=== PATIENT | male | born 1945 | race African-American/Black ===

== ENCOUNTER 2019-04-25 10:52 | Day surgery (SDC) | payer OTHER, BC ==
[2019-04-22 09:45] VITALS: BMI 28.0
[2019-04-25 11:45] VITALS: BP 148/85; PULSE 81; TEMP 98.8
== END 2019-04-25 15:45 | disposition home or self-care (01) ==
LOC: JASU-SURG 10:52
PROVIDERS: ATTEND Urology
DX: Z53.8 Procedure and treatment not carried out for other reasons (principal)
CPT/HCPCS: 82962

== ENCOUNTER 2019-04-27 08:22 | Day surgery (SDC) | payer OTHER, BC ==
[2019-04-27 09:19] VITALS: BMI 28.0
[2019-04-27] MEDS ORDERED: LIDOCAINE HCL/PF 2% SDV 5ML VIAL ONE (12:43)
[2019-04-27] MEDS ORDERED: PROPOFOL 20 ML ONE ×2 (12:43)
[2019-04-27] MEDS ORDERED: ceFAZolin SODIUM 1 GM VIAL ONE (13:06)
[2019-04-27] MEDS ORDERED: ceFAZolin SODIUM 1 GM VIAL IVPB ONE (13:07)
[2019-04-27] MEDS ORDERED: oxyCODONE HCL 5 MG TABLET PO PRN (13:38)
[2019-04-27] MEDS ORDERED: ACETAMINOPHEN 325 MG TABLET (FP) PO PRN (13:38)
[2019-04-27] MEDS ORDERED: ONDANSETRON 4 MG/2 ML VIAL IVPUSH PRN (13:38)
--- NOTE | 2019-04-27 13:39 | OP ---
Operative Note - Note: Operative Date: 04/27/19 Pre-Operative Diagnosis: bph, ca. p, bladder neck contraction Operation: tuvp/tuvbn Findings: bph/bnc Post-Operative Diagnosis: Same as Pre-op Surgeon: Kaitlin Barclay Anesthesia: General Specimens Removed: urine Estimated Blood Loss (mls): 20 Drains & Tubes with Location: 22f 30cc steve Drains, Volume Out (mls): 0 Blood Volume Replaced (mls): 0 Fluid Volume Replaced (mls): 0 Operative Report Dictated: Yes
[2019-04-27] MEDS ORDERED: LACTATED RINGERS SOLUTION 1,000 ML IV SCH (13:45)
[2019-04-27 15:34] VITALS: TEMP 97.8
[2019-04-27 16:02] VITALS: BP 150/84; PULSE 75
--- NOTE | 2019-04-28 17:35 | PATH ---
Cytology Non-Gynecological Report Patient Name: GAVIN CORTEZ Med. Rec. #: [id number] /Age/Gender: 1945 (Age: 73) / M Account: [id number] Location: [facility] SUR[facility]ICAL Taken: 04/27/2019 Received: 04/27/2019 Reported: 04/28/2019 Physicians: Kaitlin Barclay M.D. Specimen(s) Received URINE Clinical History BPH Final Diagnosis URINE FOR CYTOLOGY: SATISFACTORY FOR EVALUATION. NEGATIVE FOR HIGH GRADE UROTHELIAL CARCINOMA. SCATTERED UROTHELIAL CELLS, SQUAMOUS EPITHELIAL CELLS PRESENT. RED BLOOD CELLS PRESENT. UROTHELIAL FRAGMENTS PRESENT. Comment: Urothelial fragments are suggestive of prior instrumentation, however differential diagnosis includes lithiasis, and low grade papillary neoplasm. Suggest clinical/radiologic correlation. Electronically Signed Marybeth Abarca M.D. Gross Description Approximately 40 cc of yellow fluid received fresh. One cytofunnel prepared and Pap stained.
--- NOTE | 2019-05-13 14:34 | OP ---
DATE OF OPERATION: 04/27/2019 PREOPERATIVE DIAGNOSIS: Benign prostatic hypertrophy with outflow obstruction. OPERATIVE PROCEDURE: Transurethral vaporization of the prostate, transurethral vaporization bladder neck. ANESTHESIA: General. DESCRIPTION OF PROCEDURE: Under above-stated anesthesia, patient is prepped and draped in the usual sterile manner. He is placed in the dorsal lithotomy position. Cystoscopy revealed a normal anterior urethra. Prostatic urethra revealed trilobar hypertrophy of the prostate. There was also bladder neck contraction. The bladder was entered. This revealed a grade 2 trabeculation. No lesions or calculi were seen. Ureteral orifices were within normal limits with efflux of clear urine. A bipolar resectoscope was inserted and resection of the prostate was commended in the usual fashion. Excess tissue was then vaporized with the plasma button. The bladder neck was also vaporized in a circumferential manner. Excess prostate tissue was evacuated with an EllSimmery evacuator. No active bleeding was noted. A 22-Monegasque, 30-cc Faustin was inserted. This was connected to a drainage bag. The patient tolerated the procedure well. He returned to the recovery room in good condition. Rossana [id number]
== END 2019-04-27 15:50 | disposition home or self-care (01) ==
LOC: JASU-SURG 08:22
PROVIDERS: ATTEND Urology
PROC: 0TTB4ZZ Resection of Bladder, Percutaneous Endoscopic Approach (ICD-10-PCS; 2019-04-27)
PROC: 0V507ZZ Destruction of Prostate, Via Natural or Artificial Opening (ICD-10-PCS; principal; 2019-04-27 12:00)
DX: N40.1 Benign prostatic hyperplasia with lower urinary tract symptoms (principal)
CPT/HCPCS: 82962; 87086; 94760

== ENCOUNTER 2020-02-17 05:10 | Day surgery (SDC) | payer OTHER, BC ==
[2020-02-15 15:14] VITALS: BMI 25.1
[~2020-02-17 05:10] MED LIST: ceFAZolin SODIUM 1 GM VIAL IVPB ONE
[2020-02-17] MEDS ORDERED: PROPOFOL 20 ML ONE ×2 (14:48)
[2020-02-17] MEDS ORDERED: ceFAZolin SODIUM 1 GM VIAL IVPB ONE (15:07)
--- NOTE | 2020-02-17 15:20 | CONS ---
DATE OF CONSULTATION: 02/17/2020 CHIEF COMPLAINT: Patient is a 74-year-old man with recurrent prostatism and acute urinary retention requiring a Faustin catheter. Multiple attempts at trial of voiding have failed. Patient is here today to undergo a cystoscopy and possible TUR of the bladder neck or prostate. PAST MEDICAL HISTORY: Patient does have history of diabetes, high blood pressure, and dyslipidemia. MEDICATIONS: He is on Crestor, metoprolol, and metformin. ALLERGIES: He denies any allergies. SOCIAL HISTORY: He denies ethanol use or tobacco. He does wake up 4 times at night, underwent radiation seed implantation for prostate cancer 12 years earlier. He denies any other surgical procedures. PHYSICAL EXAMINATION: Presently his abdomen is soft. There is no tenderness, no CVA masses or tenderness. No hepatosplenomegaly. Testes are normal in size and consistency. Phallus is normal. Meatus is adequate. Prostate is 2+, firm, and nontender. A PSA recently performed was 0.4. IMPRESSION AT PRESENT: Acute urinary retention due to bladder neck contraction and/or recurrent prostate tissue. PLAN: The plan is to do a cystoscopy, possible TUR or TUV of bladder neck and prostate. JUVE BRAND M.D. [id number]
--- NOTE | 2020-02-17 16:04 | OP ---
Operative Note - Note: Operative Date: 02/17/20 Pre-Operative Diagnosis: h/o ca. prostate, aur, h/o prostatism Operation: turp/tuvp/tuvbn Findings: rec. bph with obst. and bladder neck contraction Post-Operative Diagnosis: Same as Pre-op Surgeon: Kaitlin Barclay Anesthesia: General Specimens Removed: prostate chips and bladder neck scar tissue Drains & Tubes with Location: 24f-30cc steve Drains, Volume Out (mls): 0 Blood Volume Replaced (mls): 0 Fluid Volume Replaced (mls): 0 Operative Report Dictated: Yes
--- NOTE | 2020-02-17 16:26 | OP ---
DATE OF OPERATION: 02/17/2020 DATE OF DICTATION: 02/17/2020 CHIEF COMPLAINT: The patient is a 74-year-old male with acute urinary retention. PREOPERATIVE DIAGNOSIS: Acute urinary retention, history of carcinoma prostate status post radiation seed implantation 12 years earlier, recurrent benign prostatic hypertrophy, and bladder neck contraction. POSTOPERATIVE DIAGNOSIS: Acute urinary retention, history of carcinoma prostate status post radiation seed implantation 12 years earlier, recurrent benign prostatic hypertrophy, and bladder neck contraction. OPERATIVE PROCEDURE: Cystourethroscopy, transurethral resection of prostate, transurethral vaporization of bladder neck. ANESTHESIA: General. DESCRIPTION OF PROCEDURE: Under above stated anesthesia, patient was prepped and draped in the usual sterile manner. He was placed in the dorsal lithotomy position. Cystoscopy revealed a normal anterior urethra. Prostatic urethra revealed recurrent prostate tissue with lateral lobe kissing. The bladder neck was also contracted and appeared to be scared. Bipolar resectoscope was inserted. Resection of the prostate was commenced in the usual fashion. Prostate chips were evacuated with an Innoz evacuator. No active bleeding was noted. Vapor button also bipolar was inserted. The bladder neck was vaporized from the 6 o'clock to the 12 o'clock position on the right side, and from the 6 o'clock to the 12 o'clock position on the left side. Again, no active bleeding was noted. No free tissue was noted. The bladder was emptied. The scope was removed. The 24 Salvadorean, 30 mL Faustin was inserted. This was connected to a leg bag with some traction. The patient tolerated the procedure well. He returned to the recovery room in good condition. Rossana [id number]
[2020-02-17 19:01] VITALS: BP 148/82; PULSE 78; TEMP 96.9
--- NOTE | 2020-02-21 17:34 | PATH ---
Surgical Pathology Report Patient Name: GAVIN CORTEZ Med. Rec. #: [id number] /Age/Gender: 1945 (Age: 74) / M Account: [id number] Location: [facility] SURGICAL Taken: 02/17/2020 Received: 02/20/2020 Reported: 02/21/2020 Physicians: Kaitlin Barclay M.D. Specimen(s) Received BLADDER NECK AND PROSTATE CHIPS Clinical History Bladder neck obstruction Final Diagnosis BLADDER NECK AND PROSTATE CHIPS, TRANSURETHRAL RESECTION OF PROSTATE, TRANSURETHRAL VAPORIZATION OF BLADDER NECK: BENIGN PROSTATIC TISSUE WITH PATCHY MILD ACUTE AND CHRONIC INFLAMMATION, FOCAL CYSTIC CHANGES, AND STROMAL HYPERPLASIA. BLADDER MUCOSA WITH SEVERE ACUTE AND CHRONIC CYSTITIS AND REACTIVE CHANGES. Electronically Signed Marybeth Abarca M.D. Gross Description Received in formalin labeled "bladder neck and prostate," is a 4 g, 5.7 x 4.5 x 0.5 cm aggregate of nino, firm to rubbery portions of tissue, consistent with prostate chips. The formalin is filtered and the specimen is entirely submitted in 5 cassettes. /02/20/2020 [facility]02/20/2020
== END 2020-02-17 18:35 | disposition home or self-care (01) ==
LOC: JASU-SURG 05:10
PROVIDERS: ATTEND Urology
PROC: 0VT08ZZ Resection of Prostate, Via Natural or Artificial Opening Endoscopic (ICD-10-PCS; principal; 2020-02-17 13:00)
DX: N40.1 Benign prostatic hyperplasia with lower urinary tract symptoms (principal); R33.8 Other retention of urine; N32.0 Bladder-neck obstruction; Z85.46 Personal history of malignant neoplasm of prostate; Z92.3 Personal history of irradiation; I10 Essential (primary) hypertension; E11.9 Type 2 diabetes mellitus without complications; Z79.84 Long term (current) use of oral hypoglycemic drugs
CPT/HCPCS: 82962; 88305-TC; 94760

== ENCOUNTER 2020-03-15 19:00 | Inpatient (IN) | payer OTHER, BC ==
[2020-03-15 19:07] VITALS: BMI 25.9
--- NOTE | 2020-03-15 19:34 | PDOC ---
History of Present Illness - General Chief Complaint: Urinary Problem Stated Complaint: SENT BY PCP/STAT - History of Present Illness Initial Comments: The pt is a 74M w/ a history of prostate cancer s/p TURP, HTN, DM who presents for evaluation from Dr. Barclay's office for difficulty with urination and clots. The pt reports having a TURP recently. The pt denies any fevers/chills, MARTINS, vision changes, chest pain, trouble breathing, abdominal or back pain, diarrhea, vomiting, or blood in stool. Pt reports he was sent for admission for a procedure tomorrow. 03/15/20 19:43 Past History - Medical History Allergies/Adverse Reactions: Allergies Allergy/AdvReac Type Severity Reaction Status Date / Time No Known Allergies Allergy Verified 03/15/20 19:06 Home Medications: Ambulatory Orders Aspirin Coated [Ecotrin -] 81 mg PO DAILY 04/22/19 Metformin HCl [Glucophage] 1,000 mg PO BID 04/22/19 Metoprolol Succinate [Toprol Xl -] 200 mg PO DAILY 04/22/19 Rosuvastatin [Crestor -] 20 mg PO DAILY 04/22/19 Tamsulosin HCl [Flomax] 0.4 mg PO HS 03/15/20 COPD: No Diabetes: Yes HTN: Yes Hypercholesterolemia: Yes - Psycho-Social/Smoking History Smoking History: Never smoked Have you smoked in the past 12 months: No If you are a former smoker, when did you quit?: 2004 Information on smoking cessation initiated: No - Substance Abuse Hx (Audit-C & DAST Scrn) How often the patient has a drink containing alcohol: Never Score: In Men: 4 or > Positive; In Women: 3 or > Positive: 0 Screen Result (Pos requires Nsg. Audit-10AR): Negative In the last yr the pt used illegal drug/Rx for NonMed reason: No Score: Yes response is considered Positive: 0 Screen Result (Positive result requires Nsg. DAST-10): Negative Review of Systems - Review of Systems Able to Perform ROS?: Yes Comments:: GENERAL/CONSTITUTIONAL: No fever or chills. No weakness HEAD, EYES, EARS, NOSE AND THROAT: No change in vision. No change in hearing. No sore throat CARDIOVASCULAR: No chest pain or shortness of breath RESPIRATORY: Denies cough, hemoptysis GASTROINTESTINAL: No nausea, vomiting, diarrhea or constipation GENITOURINARY: per HPI MUSCULOSKELETAL: No joint or muscle swelling or pain. No neck or back pain SKIN: No rash NEUROLOGIC: No headache, vertigo, loss of consciousness, or change in str ength/sensation ENDOCRINE: No increased thirst. No abnormal weight change ALLERGIC/IMMUNOLOGIC: No hives or skin allergy 03/15/20 19:32 Is the patient limited Thai proficient: No *Physical Exam - Vital Signs Last Vital Signs Temp Pulse Resp BP Pulse Ox 98.2 F 92 H 18 108/84 98 03/15/20 19:03 03/15/20 19:03 03/15/20 19:03 03/15/20 19:03 03/15/20 19:03 - Physical Exam GENERAL: Awake, alert, and oriented to person/place/time, in no acute distress HEAD: No signs of trauma, normocephalic, atraumatic EYES: PERRLA, EOMI, sclera anicteric, conjunctiva clear ENT: Hearing grossly normal, nares patent, oropharynx clear without exudates. Moist mucosa LUNGS: No distress, speaks in full sentences, clear to auscultation bilaterally HEART: Regular rate and rhythm, normal S1 and S2, no murmurs appreciated, peripheral pulses normal and equal bilaterally ABDOMEN: Soft, nontender, normoactive bowel sounds. No guarding, no rebound EXTREMITIES: Normal inspection, Normal range of motion, no edema. No clubbing or cyanosis NEUROLOGICAL: Cranial nerves II through XII grossly intact. Normal speech, normal gait, no focal sensorimotor deficits SKIN: Warm, Dry 03/15/20 19:34 ED Treatment Course - LABORATORY CBC & Chemistry Diagram: 03/15/20 20:00 03/15/20 20:00 Medical Decision Making - Medical Decision Making The pt is a 74M w/ a history of prostate cancer s/p TURP, HTN, DM who presents for evaluation from Dr. Barclay's office for difficulty with urination and clots sent for admission for a procedure tomorrow. ED Course Labs sent ECG Pt does not have any physical complaints at this time 03/15/20 20:45 ECG w/ NSR; HR 89; QTc 413; no axis deviation; no ANNE No leukocytosis Anemia noted, no indication for transfusion at this time Lytes unremarkable Cr noted, near baseline LFTs unremarkable Pt reported urinating at time of arrival, a small amount Denies abdominal pressure/discomfort; no abdominal TTP NPO after midnight Dispo: Admit 03/15/20 21:46 Discharge - Discharge Information Problems reviewed: Yes Clinical Impression/Diagnosis: Difficulty urinating, History of prostate cancer Condition: Stable - Admission Yes - Follow up/Referral Referrals: Axel Barclay MD [Primary Care Provider] - - Patient Discharge Instructions - Post Discharge Activity
[2020-03-15 20:35] LABS: BASO % 0.3 % (0-2.0); EOS % 2.1 % (0-4.5); HEMATOCRIT 34.5 % (35.4-49); HEMOGLOBIN 11.4 GM/dL (11.7-16.9); LYMPH % 14.5 % (8-40); MCH 30.2 pg (25.7-33.7); MEAN CELL VOLUME 91.6 fl (80-96); MEAN PLT VOLUME 8.6 fl (7.5-11.1); MONO % 4.8 % (3.8-10.2); NEUT % 78.3 % (42.8-82.8); PLATELET COUNT 282 K/MM3 (134-434); RBC 3.77 M/mm3 (4.00-5.60); WHITE BLOOD COUNT 9.8 K/mm3 (4.0-10.0)
[2020-03-15 20:43] LABS: INR 1.04 (0.83-1.09); PROTHROMBIN TIME (PATIENT) 12.3 SEC (9.7-13.0)
[2020-03-15 20:45] LABS: ACTIVATED PTT 35.6 SECONDS (25.2-36.5)
--- NOTE | 2020-03-15 21:12 | PDOC ---
Attending Attestation - Resident Resident Name: RamonamollyArianaEnrique - ED Attending Attestation I have performed the following: I have examined & evaluated the patient, The case was reviewed & discussed with the resident, I agree w/resident's findings & plan, Exceptions are as noted - HPI HPI: 03/15/20 21:10 See resident HPI - Physicial Exam PE: 03/15/20 21:10 Agree with documented exam - Medical Decision Making 03/15/20 21:[address] Barclay for admission and possible cystoscopy tomorrow Pt has stricture preventing steve placement, is passing clots, currently w/o re tention No distress pre-op labs, ekg admit Discharge - Discharge Information Problems reviewed: Yes Clinical Impression/Diagnosis: Difficulty urinating, History of prostate cancer Condition: Stable - Follow up/Referral - Patient Discharge Instructions - Post Discharge Activity
[2020-03-15 21:17] LABS: BILIRUBIN,TOTAL 0.4 mg/dL (0.2-1); BLOOD UREA NITROGEN 27.1 mg/dL (7-18); CALCIUM 9.5 mg/dL (8.5-10.1); CREATININE 1.4 mg/dL (0.55-1.3); POTASSIUM 4.8 mmol/L (3.5-5.1); TOT PROT 7.1 g/dl (6.4-8.2)
[2020-03-16] MEDS ORDERED: MORPHINE SULFATE 2 MG/ML VIAL IVPUSH PRN (07:35)
[2020-03-16] MEDS ORDERED: CEFTRIAXONE 1 GM in DEXTROSE 5%-WATER - 50 ML IVPB ONE ×2 (08:00→17:10)
[2020-03-16 08:25] LABS: BASO % 0.2 % (0-2.0); EOS % 0.2 % (0-4.5); HEMATOCRIT 37.6 % (35.4-49); HEMOGLOBIN 12.2 GM/dL (11.7-16.9); LYMPH % 8.2 % (8-40); MCH 30.1 pg (25.7-33.7); MCHC 32.5 g/dl (32.0-35.9); MEAN CELL VOLUME 92.7 fl (80-96); MEAN PLT VOLUME 8.5 fl (7.5-11.1); MONO % 4.1 % (3.8-10.2); NEUT % 87.3 % (42.8-82.8); PLATELET COUNT 249 K/MM3 (134-434); RBC 4.05 M/mm3 (4.00-5.60); RDW 14.2 % (11.9-15.9); WHITE BLOOD COUNT 15.9 K/mm3 (4.0-10.0)
[2020-03-16 09:02] LABS: ALBUMIN 3.1 g/dl (3.4-5.0); BILIRUBIN,TOTAL 0.5 mg/dL (0.2-1); BLOOD UREA NITROGEN 29.4 mg/dL (7-18); CALCIUM 9.7 mg/dL (8.5-10.1); CREATININE 1.4 mg/dL (0.55-1.3); POTASSIUM 4.3 mmol/L (3.5-5.1); TOT PROT 7.3 g/dl (6.4-8.2)
[2020-03-16] MEDS ORDERED: CEFTRIAXONE 1 GM/50 ML BAG ONE (09:04)
--- NOTE | 2020-03-16 09:17 | EKG ---
Test Reason : Blood Pressure : / mmHG Vent. Rate : 089 BPM Atrial Rate : 089 BPM P-R Int : 192 ms QRS Dur : 080 ms QT Int : 340 ms P-R-T Axes : 060 059 035 degrees QTc Int : 413 ms NORMAL SINUS RHYTHM NONSPECIFIC T WAVE ABNORMALITY ABNORMAL ECG NO PREVIOUS ECGS AVAILABLE Confirmed by HECTOR JOHNSON MD ([id number]) on 03/16/2020 9:16:51 AM Referred By: Confirmed By:HECTOR JOHNSON MD
[2020-03-16] MEDS: SODIUM CHLORIDE 0.45% 1,000 ML IV SCH (09:30)
--- NOTE | 2020-03-16 13:44 | HP ---
Admitting History and Physical - Admission History of Present Illness: pt had turbt bladderr neck? procedure to open ? stricture and bladder neck ? 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) Endocrine: Yes: Diabetes Mellitus - Past Surgical History Additional Past Surgical History: tubrt - Smoking History Smoking history: Never smoked Have you smoked in the past 12 months: No If you are a former smoker, when did you quit?: 2005 - Alcohol/Substance Use Hx Alcohol Use: No History of Substance Use: reports: None - Social History Usual Living Arrangement: Yes: With Spouse History of Recent Travel: No Home Medications - Allergies Allergies/Adverse Reactions: Allergies Allergy/AdvReac Type Severity Reaction Status Date / Time No Known Allergies Allergy Verified 03/15/20 19:06 - Home Medications Home Medications: Ambulatory Orders Aspirin Coated [Ecotrin -] 81 mg PO DAILY 04/22/19 Metformin HCl [Glucophage] 1,000 mg PO BID 04/22/19 Metoprolol Succinate [Toprol Xl -] 200 mg PO DAILY 04/22/19 Rosuvastatin [Crestor -] 20 mg PO DAILY 04/22/19 Tamsulosin HCl [Flomax] 0.4 mg PO HS 03/15/20 Family Medical History Family History: Unremarkable Review of Systems - Review of Systems Constitutional: reports: No Symptoms, Malaise HENT: reports: No Symptoms Neck: reports: No Symptoms Cardiovascular: reports: No Symptoms Respiratory: reports: No Symptoms Gastrointestinal: reports: No Symptoms Genitourinary: reports: Frequency, Other (u/a retention) Breasts: reports: No Symptoms Reported Musculoskeletal: reports: No Symptoms Integumentary: reports: No Symptoms Neurological: reports: No Symptoms Endocrine: reports: No Symptoms Hematology/Lymphatic: reports: No Symptoms Psychiatric: reports: No Symptoms Physical Examination Vital Signs: Vital Signs Temperature 98.5 F 03/16/20 09:00 Pulse Rate 106 H 03/16/20 09:00 Respiratory Rate 18 03/16/20 09:00 Blood Pressure 192/90 H 03/16/20 09:00 O2 Sat by Pulse Oximetry (%) 94 L 03/16/20 09:00 Constitutional: Yes: Well Nourished Eyes: Yes: WNL HENT: Yes: WNL Neck: Yes: WNL Cardiovascular: Yes: WNL Respiratory: Yes: WNL Gastrointestinal: Yes: WNL ...Rectal Exam: Yes: Deferred Renal/: Yes: WNL, Urethral Discharge Musculoskeletal: Yes: WNL Extremities: Yes: WNL Edema: Yes Peripheral Pulses WNL: Yes Integumentary: Yes: WNL Neurological: Yes: WNL ...Motor Strength: WNL Psychiatric: Yes: WNL Labs: CBC, BMP 03/16/20 08:09 03/16/20 08:09 Assessment/Plan cysyto today feed pt postop ?d/c home with leg bag see me thursday 100 pm and gu later cont all meds at home
[2020-03-16] MEDS ORDERED: PROPOFOL 20 ML ONE (15:54)
[2020-03-16] MEDS ORDERED: LIDOCAINE HCL/PF 2% SDV 5ML VIAL ONE (15:54)
[2020-03-16] MEDS ORDERED: DEXAMETHASONE SOD PHOSPHATE 4 MG/1 ML VIAL ONE (15:54)
[2020-03-16] MEDS ORDERED: ceFAZolin SODIUM 1 GM VIAL IVPB ONE (16:32)
[2020-03-16] MEDS ORDERED: ceFAZolin SODIUM 1 GM VIAL ONE (16:32)
[2020-03-16] MEDS ORDERED: IOHEXOL 180 MG/1 ML ML IJ ONE ×2 (16:40)
--- NOTE | 2020-03-16 16:59 | OP ---
Operative Note - Note: Operative Date: 03/16/20 Pre-Operative Diagnosis: aur Operation: cysto, dilation and steve placement Findings: contracted bladder neck Post-Operative Diagnosis: Same as Pre-op Surgeon: Kaitlin Barclay Anesthesia: General Specimens Removed: urine Estimated Blood Loss (mls): 0 Instrument used (Debridements only): 0 Drains & Tubes with Location: 20f 10cc steve Drains, Volume Out (mls): 0 Blood Volume Replaced (mls): 0 Fluid Volume Replaced (mls): 0 Operative Report Dictated: Yes
[2020-03-16] MEDS ORDERED: ACETAMINOPHEN INJECTION 100 ML IVPB ONE (17:05)
[2020-03-16] MEDS ORDERED: ACETAMINOPHEN 1000 MG/100 ML VIAL (NON FORMULARY) IVPB PRN (17:08)
[2020-03-16] MEDS ORDERED: GENTAMICIN INJECTION 160 MG in SODIUM CHLORIDE 100 ML IVPB ONE (17:15)
[2020-03-16] MEDS ORDERED: GENTAMICIN SO4 80 MG/2 ML VIAL ONE (17:20)
[2020-03-16] MEDS ORDERED: cefTRIAXone SODIUM 1 GM VIAL ONE (17:20)
[2020-03-16] MEDS: ROSUVASTATIN CA 20 MG TABLET (FP) PO SCH (22:19)
[2020-03-17] MEDS: SODIUM CHLORIDE 0.45% 1,000 ML IV SCH (07:46)
[2020-03-17] MEDS ORDERED: PT OWN MED DRAWER 7, Y5N ONE ×2 (09:07→09:36)
[2020-03-17] MEDS: FINASTERIDE 5 MG TABLET (FP) PO SCH (09:34)
[2020-03-17] MEDS: amLODIPine BESYLATE 10 MG TABLET (FP) PO SCH (09:35)
[2020-03-17] MEDS: ASPIRIN COATED 81 MG TABLET.EC PO SCH (09:35)
[2020-03-17] MEDS ORDERED: GENTAMICIN 80 MG PREMIXED IVPB 80 MG/100 ML BAG IVPB SCH (10:00)
[2020-03-17 10:36] LABS: BASO % 0.1 % (0-2.0); EOS % 0.1 % (0-4.5); HEMATOCRIT 31.5 % (35.4-49); HEMOGLOBIN 10.5 GM/dL (11.7-16.9); LYMPH % 10.6 % (8-40); MCH 30.3 pg (25.7-33.7); MCHC 33.3 g/dl (32.0-35.9); MEAN CELL VOLUME 90.8 fl (80-96); MONO % 3.4 % (3.8-10.2); NEUT % 85.8 % (42.8-82.8); PLATELET COUNT 236 K/MM3 (134-434); RBC 3.47 M/mm3 (4.00-5.60); WHITE BLOOD COUNT 14.7 K/mm3 (4.0-10.0)
[2020-03-17 10:59] LABS: BLOOD UREA NITROGEN 23.1 mg/dL (7-18); CALCIUM 9.4 mg/dL (8.5-10.1); POTASSIUM 4.4 mmol/L (3.5-5.1)
--- NOTE | 2020-03-17 13:31 | PN ---
Progress Note (short form) - Note Progress Note: UROLOGY NOTE 74 Y/O Male patient S/P BNR on steve catheter doing well, no pain clear urine. O/E Soft lax abd no palpable bladder 20 F catheter drains clear urine WBC 14.7 HB 10.5 BUN 23.1 S.Creat 1.0 on Gentamycin inj Plan: keep Steve will follow
--- NOTE | 2020-03-17 14:12 | DS ---
Physical Examination Vital Signs: Vital Signs Temperature 98.7 F 03/17/20 10:00 Pulse Rate 87 03/17/20 10:00 Respiratory Rate 19 03/17/20 10:00 Blood Pressure 141/71 03/17/20 10:00 O2 Sat by Pulse Oximetry (%) 99 03/17/20 10:00 Constitutional: Yes: Well Nourished Eyes: Yes: WNL HENT: Yes: WNL Neck: Yes: WNL Cardiovascular: Yes: WNL Respiratory: Yes: WNL Gastrointestinal: Yes: WNL ...Rectal Exam: Yes: Deferred Renal/: Yes: Fautsin Present Breast(s): Yes: WNL, Skin Changes Extremities: Yes: WNL Edema: No Peripheral Pulses WNL: Yes Integumentary: Yes: WNL Neurological: Yes: WNL ...Motor Strength: WNL Psychiatric: Yes: WNL Labs: CBC, BMP 03/17/20 09:36 03/17/20 09:30 Discharge Summary Problems reviewed: Yes Reason For Visit: HEMATURIA,DIFFICULTY IN URINATION Current Active Problems Difficulty urinating (Acute) History of prostate cancer (Acute) Condition: Stable - Instructions Diet, Activity, Other Instructions: leg bag gu f/u appt with me 1200 noon thursday cont all as is at home cipro 250 bid x 7 days Referrals: Axel Barclay MD [Primary Care Provider] - Disposition: HOME - Home Medications Comprehensive Discharge Medication List: Ambulatory Orders Aspirin Coated [Ecotrin -] 81 mg PO DAILY 04/22/19 Metformin HCl [Glucophage] 1,000 mg PO BID 04/22/19 Metoprolol Succinate [Toprol Xl -] 200 mg PO DAILY 04/22/19 Rosuvastatin [Crestor -] 20 mg PO DAILY 04/22/19 Tamsulosin HCl [Flomax] 0.4 mg PO HS 03/15/20
--- NOTE | 2020-03-17 19:09 | CONS ---
PREOPERATIVE NOTE DATE OF CONSULTATION: DATE OF DICTATION: 03/17/2020 A 74-year-old male who was seen in the office yesterday with inability to void. Several attempts at passage of a Faustin were unsuccessful. Therefore, the patient was sent to the emergency room to have the procedure performed under anesthesia with a rigid cystoscope. Patient does have history of cancer of the prostate, for which he underwent radiation seed implantation 2 weeks prior. Patient underwent a TUR of a bladder neck contraction, had a Faustin catheter inserted at that time, but was removed on the fifth postoperative day. Patient came complaining of dribbling and suprapubic pain. A bladder scan revealed more than 600 mL of urine in the bladder. ALLERGIES: Patient denies any allergies. PHYSICAL EXAMINATION: General: A well-developed, adult male. Abdomen: Soft. His bladder is distended. Genitalia: Appear normal and atraumatic. Extremities: Full range of motion with no cyanosis, clubbing, or edema. IMPRESSION: Urinary retention with bladder neck contraction. PLAN: Cystoscopy and placement of Faustin catheter. Rossana [id number]
--- NOTE | 2020-03-17 21:46 | OP ---
DATE OF OPERATION: 03/16/2020 PREOPERATIVE DIAGNOSIS: Acute urinary retention. POSTOPERATIVE DIAGNOSIS: Bladder neck contraction. OPERATIVE PROCEDURE: Cystoscopy, dilation and placement of Faustin. ANESTHESIA: General. Under above-stated anesthesia, patient was prepped and draped in the usual sterile manner, placed in the dorsal lithotomy position. Cystoscopy performed under direct vision, revealed a normal anterior urethra. Posterior urethra appeared to be scarred. Therefore, with the cystoscope, the prostatic urethra was opened. The bladder was entered. Next, 1000 mL of urine were drained. A 20-[place] Faustin was left in place. No pathology was seen in the bladder. The patient underwent the procedure without any problems. He tolerated this well. He returned to the recovery room in good condition. Rossana [id number]
[2020-03-17] MEDS: ROSUVASTATIN CA 20 MG TABLET (FP) PO SCH (22:11)
[2020-03-18] MEDS: SODIUM CHLORIDE 0.45% 1,000 ML IV SCH (06:48)
[2020-03-18] MEDS: FINASTERIDE 5 MG TABLET (FP) PO SCH (09:52)
[2020-03-18] MEDS: ASPIRIN COATED 81 MG TABLET.EC PO SCH (09:52)
[2020-03-18] MEDS: amLODIPine BESYLATE 10 MG TABLET (FP) PO SCH (09:52)
[2020-03-18 12:06] VITALS: BP 144/92; PULSE 81; TEMP 99.5
[2020-03-23] MEDS ORDERED: cloNIDine-TTS 0.2 MG/24 HOURS PATCH.TDWK TD SCH (10:00)
== END 2020-03-18 12:00 | disposition home or self-care (01) | DRG 700 ==
LOC: JER 19:00 → JERBED 21:32 → J7W 03-16 19:22
PROVIDERS: ADMIT Family Medicine; ATTEND Family Medicine
PROC: 0T9B80Z Drainage of Bladder with Drainage Device, Via Natural or Artificial Opening Endoscopic (ICD-10-PCS; 2020-03-16)
PROC: 0T7D8ZZ Dilation of Urethra, Via Natural or Artificial Opening Endoscopic (ICD-10-PCS; principal; 2020-03-16 13:00)
DX: N32.0 Bladder-neck obstruction (principal); R33.8 Other retention of urine; Z85.46 Personal history of malignant neoplasm of prostate; N18.2 Chronic kidney disease, stage 2 (mild); I10 Essential (primary) hypertension; E11.9 Type 2 diabetes mellitus without complications
CPT/HCPCS: 36415; 76000-TC-FY; 76870-TC; 80048; 80053; 85025; 85610; 85730; 86850; 86900; 86901; 87086; 87186; 93005; 93010; 94760; 99285-25; J0131; U0003